=== PATIENT | male | born 1970 | race Two or more races ===

== ENCOUNTER 2024-10-12 00:55 | Emergency (ER) | payer OTHER, MEDICAID ==
[~2024-10-12] VITALS: Ht 162.6 cm; Wt 68.2 kg
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
[2024-10-12 03:39] VITALS: BP 124/62; PULSE 75; RESP 16; TEMP 98; O2SAT 98
== END 2024-10-12 03:44 | disposition home or self-care (01) ==
LOC: ER 00:55 → EDBD 00:55 → ER 03:44
DX: S00.81XA Abrasion of other part of head, initial encounter (principal); W18.39XA Other fall on same level, initial encounter; Y93.89 Activity, other specified; Y92.89 Other specified places as the place of occurrence of the external cause; Y99.8 Other external cause status